=== PATIENT | female | born 1995 | race Caucasian/White ===

== ENCOUNTER 2022-10-22 10:08 | Emergency (ER) | payer OTHER, SELFPAY ==
[2022-10-22 10:23] VITALS: BP 118/77; PULSE 91; RESP 16; TEMP 36.3; O2SAT 98; BMI 32.5
--- NOTE | 2022-10-22 11:52 | ED.CHESTPAIN ---
HPI - Chest Pain General Chief Complaint: Chest Pain Stated Complaint: Soreness in center upper chest Time Seen by Provider: 10/22/22 10:13 History of Present Illness HPI narrative: This 27-year-old female comes in reporting some chest discomfort around her sternum that began a couple weeks ago. She states that it has come and gone randomly over this time. She can reproduce this pain with taking a deep breath or when pressing along her sternum. She does not report any particular injury event or strenuous activity. She did have some nausea and vomiting this morning but this is not particularly related to her chest discomfort. She denies having any lightheadedness, shortness of breath, diaphoresis, or exercise intolerance. She has no cardiac risk factors and is otherwise in good health. Related Data Previous Rx's Medication Instructions Recorded ketorolac 10 mg tablet 10 mg PO Q8H 5 days #15 tabs 10/22/22 Allergies Allergy/AdvReac Type Severity Reaction Status Date / Time Sulfa (Sulfonamide Allergy Anaphylaxis Verified 10/22/22 10:34 Antibiotics) Review of Systems Status of ROS Reports: 10 or more systems reviewed and unremarkable except as noted in History and below Narrative Constitutional: No fevers, no weight gain or loss. Eyes: No discharge. No vision changes. HENT: No congestion, no sore throat, no ear pain. Cardiovascular: No palpitations. Chest: Chest discomfort as described above. Respiratory: No shortness of breath, no wheezes, no cough. Gastrointestinal: No abdominal pain, no vomiting, no diarrhea. Genitourinary: No dysuria, no hematuria. Musculoskeletal: Normal range of motion. Skin: No rashes, no pruritis. Neurological: No dizziness, weakness, sensory change, speech change. Endo/Heme/Allergies: No bruising or bleeding. No polydipsia. Pysch: no suicidality, no anxiety, no insomnia. All other systems reviewed and are negative. Exam Narrative Exam Narrative: Constitutional: Well-developed, well-nourished, no acute distress. HEENT: Normocephalic, atraumatic. Neck: Normal range of motion. Nontender. Supple. Heart: Regular. No murmurs. Normal rate. Intact distal pulses. Lungs: Clear to auscultation. . No wheezes, rhonchi, or rales. She has distinct pain when taking a deep breath or pressing along the sternal border. Abdomen: Normal bowel sounds. Nontender. No rebound tenderness. Genitalia: Deferred. Back: No midline tenderness. Normal range of motion. Extremities: Normal range of motion. No injury. Skin: Intact. No rash. Warm. No erythema or pallor. Neurologic: No altered sensation. No weakness. Alert and oriented. Psychiatric: No suicidality. No anxiety or depression. No insomnia. Nursing notes and vitals signs are reviewed. Const Vital Signs, click to edit/add: Vital Signs - 24 hr 10/22/22 10:23 Temperature 97.4 F L Pulse Rate [Pulse Oximeter] 91 Respiratory Rate 16 Blood Pressure [Right Upper Arm] 118/77 Pulse Oximetry 98 Oxygen Delivery Method Room Air Course Vital Signs Vital signs: Initial Vital Signs Temperature 97.4 F L 10/22/22 10:23 Temperature Source Tympanic 10/22/22 10:23 Pulse Rate 91 10/22/22 10:23 Pulse Rhythm 10/22/22 10:23 Respiratory Rate 16 10/22/22 10:23 Blood Pressure 118/77 10/22/22 10:23 Blood Pressure Mean 90 10/22/22 10:23 Blood Pressure Position Sitting 10/22/22 10:23 Pulse Oximetry 98 10/22/22 10:23 Oxygen Delivery Method 10/22/22 10:23 Vital Signs Temperature 97.4 F L 10/22/22 10:23 Pulse Rate 91 10/22/22 10:23 Respiratory Rate 16 10/22/22 10:23 Blood Pressure 118/77 10/22/22 10:23 Pulse Oximetry 98 10/22/22 10:23 Oxygen Delivery Method 10/22/22 10:23 Temperature 97.4 F L 10/22/22 10:23 Pulse Rate 91 10/22/22 10:23 Respiratory Rate 16 10/22/22 10:23 Blood Pressure 118/77 10/22/22 10:23 Pulse Oximetry 98 10/22/22 10:23 Oxygen Delivery Method 10/22/22 10:23 MDM - Chest Pain MDM Narrative Medical decision making narrative: This patient comes in with chest pain as described above. The pain is reproducible suggesting chest wall pain or costal chondritis. I did describe various tests that can be done here for further evaluation but indicated reassurance with her vital signs and exam and the reproducibility of her chest pain. I did look with ultrasound at bedside unofficially and saw normal anatomy. This was sufficient to reassure the patient. She declined any further testing. She did receive a prescription for Toradol and a rib belt. Discharge Plan Discharge Clinical Impression: Costalchondritis Patient Disposition: Home, Self-Care Condition: Stable Additional Instructions: Take medication as needed and directed. Activity as tolerated. Use rib belt as needed also. Follow up with MD or return if worsening. Prescriptions: New ketorolac 10 mg tablet 10 mg PO Q8H 5 Days Qty: 15 0RF Stand Alone Forms: [employer] Info Instructions
== END 2022-10-22 12:22 | disposition home or self-care (01) ==
PROVIDERS: Emergency Provider Emergency Medicine Emergency Medical Services
DX: M94.0 Chondrocostal junction syndrome [Tietze] (principal)
CPT/HCPCS: 99283; 99284